=== PATIENT | female | born 1960 | race American Indian/Alaskan Native ===

== ENCOUNTER 2022-11-04 04:06 | Day surgery (SDC) | payer OTHER ==
[2022-11-02 14:51] VITALS: BMI 29.9
[2022-11-04] MEDS ORDERED: PROPOFOL 40 ML ONE (13:27)
[2022-11-04] MEDS ORDERED: MIDAZOLAM HCL 2 MG/2 ML SINGLE DOSE VIAL ONE (13:28)
[2022-11-04] MEDS ORDERED: SUCCINYLCHOLINE CHLORIDE 200 MG/10 ML SYRINGE ONE (13:28)
[2022-11-04] MEDS ORDERED: LIDOCAINE HCL/PF 2% SDV 5ML VIAL ONE (13:33)
[2022-11-04] MEDS ORDERED: ONDANSETRON 4 MG/2 ML VIAL IVPUSH PRN ×2 (14:39→14:40)
[2022-11-04] MEDS ORDERED: oxyCODONE HCL 5 MG TABLET PO PRN ×2 (14:39→14:40)
[2022-11-04] MEDS ORDERED: IBUPROFEN 800 MG/8 ML IJ IVPB PRN (14:40)
[2022-11-04] MEDS ORDERED: IBUPROFEN 600 MG TABLET (FP) PO PRN (14:40)
[2022-11-04] MEDS ORDERED: ELECTROLYTE-148 SOLN 1,000 ML IV SCH (14:45)
[2022-11-04 15:44] VITALS: RESP 18
[2022-11-04 16:25] VITALS: BP 152/75; PULSE 68; TEMP 97.7
== END 2022-11-04 16:15 | disposition home or self-care (01) ==
LOC: JASU-SURG 04:06
PROVIDERS: ATTEND Obstetrics & Gynecology
PROC: 0UB98ZZ Excision of Uterus, Via Natural or Artificial Opening Endoscopic (ICD-10-PCS; principal; 2022-11-04 14:00)
DX: N95.0 Postmenopausal bleeding (principal); D25.0 Submucous leiomyoma of uterus
CPT/HCPCS: 88305-TC; 94760